=== PATIENT | male | born 1950 | race Caucasian/White ===

== ENCOUNTER 2024-08-23 10:45 | Outpatient (CLI) | payer MEDICARE ==
[~2024-08-23 10:45] MED LIST: Magnevist 469MG/ML 20 ML VIAL ONE
== END 2024-08-23 10:46 | disposition home or self-care (01) ==
LOC: CSHMRI 10:45
PROVIDERS: ATTEND Urology
DX: R97.20 Elevated prostate specific antigen [PSA] (principal)
CPT/HCPCS: 72197

== ENCOUNTER 2025-06-20 14:22 | Outpatient (CLI) | payer MEDICARE | END 2025-06-20 14:23 | disposition home or self-care (01) | LOC: CSHMAMMO 14:22 | PROVIDERS: ATTEND Family Medicine | DX: N63.42 Unspecified lump in left breast, subareolar (principal) | CPT/HCPCS: 76642; 77066; G0279 ==